=== PATIENT | female | born 1985 | race Two or more races ===

== ENCOUNTER 2016-11-08 16:36 | Emergency (ER) | payer SELFPAY ==
[~2016-11-08] VITALS: Ht 172.7 cm; Wt 79.4 kg
[2016-11-08 17:27] VITALS: BP 118/69
--- NOTE | 2016-11-08 17:31 | PHYS DOC ---
Past Medical History Past Medical History: Kidney Stone Past Surgical History: Alcohol Use: None Drug Use: None Adult General Chief Complaint Chief Complaint: VAGINAL PROBLEM HPI HPI Patient is a 31 year old female who presents with burning with urination and vaginal bleeding for two days. Interpretor phone used, #[phone]. Reports bleeding on ly occurs with wiping intermittently. Denies abnormal discharge, concern for STI, abdominal pain, n/v/d, fever. States some pressure occurs with urination. Review of Systems Review of Systems Constitutional: Denies fever or chills Eyes: Denies change in visual acuity, redness, or eye pain HENT: Denies nasal congestion or sore throat Respiratory: Denies cough or shortness of breath Cardiovascular: No additional information not addressed in HPI GI: Denies abdominal pain, nausea, vomiting, bloody stools or diarrhea : Burning with urination, blood on toilet paper for two days Musculoskeletal: Denies back pain or joint pain Integument: Denies rash or skin lesions Neurologic: Denies headache, focal weakness or sensory changes Endocrine: Denies polyuria or polydipsia [] Allergies Allergies Allergies Coded Allergies Type Severity Reaction Last Updated Verified No Known Drug Allergies 11/08/16 No Physical Exam Physical Exam Constitutional: Well developed, well nourished, no acute distress, non-toxic appearance. HENT: Normocephalic, atraumatic, bilateral external ears normal, oropharynx moist, no oral exudates, nose normal. Eyes: PERRLA, EOMI, conjunctiva normal, no discharge. Neck: Normal range of motion, no tenderness, supple, no stridor. Cardiovascular:Heart rate regular rhythm, no murmur Lungs & Thorax: Bilateral breath sounds clear to auscultation Abdomen: Bowel sounds normal, soft, no tenderness, no masses, no pulsatile masses. Vaginal: No external or internal lesions. Small amount of thick white discharge noted to vaginal matias. OS closed without erythema, no CMT Skin: Warm, dry, no erythema, no rash. [] Back: No tenderness, no CVA tenderness. [] Extremities: No tenderness, no cyanosis, no clubbing, ROM intact, no edema. [] Neurologic: Alert and oriented X 3, normal motor function, normal sensory function, no focal deficits noted. [] Psychologic: Affect normal, judgement normal, mood normal. [] Current Patient Data Vital Signs Vital Signs Date Time Temp Pulse Resp B/P Pulse Ox O2 Delivery O2 Flow Rate FiO2 11/08/16 17:27 98.3 96 20 100 Room Air 98.3 Lab Values Laboratory Tests Test 11/08/16 17:20 Urine Collection Type Unknown Urine Color Yellow Urine Clarity Cloudy Urine pH 6.0 Urine Specific [place] 1.020 Urine Protein 30mg/dL (NEG-TRACE) Urine Glucose (UA) Negativemg/dL (NEG) Urine Ketones (Stick) Negativemg/dL (NEG) Urine Blood Large (NEG) Urine Nitrite Negative (NEG) Urine Bilirubin Negative (NEG) Urine Urobilinogen Dipstick 0.2mg/dL (0.2 mg/dL) Urine Leukocyte Esterase Large (NEG) Urine RBC 20-40/HPF (0-2) Urine WBC 20-40/HPF (0-4) Urine Squamous Epithelial Cells Few/LPF Urine Bacteria 0/HPF (0-FEW) Urine Mucus Slight/LPF Urine Test Negative (NEG) Microbiology 11/08/16 Wet Prep - Final, Complete Microbiology 11/08/16 Wet Prep - Final, Complete EKG EKG [] Radiology/Procedures Radiology/Procedures [] Impressions: 1. urinary tract infection 2. yeast infection Course & Med Decision Making Course & Med Decision Making Pertinent Labs and Imaging studies reviewed. (See chart for details) [] Dragon Disclaimer Dragon Disclaimer This electronic medical record was generated, in whole or in part, using a voice recognition dictation system. Departure Departure Impression: Primary Impression: Urinary tract infection Additional Impression: Yeast infection Disposition: 01 HOME, SELF-CARE Condition: STABLE Patient Instructions: Candidal Vulvovaginitis, [id number], Urinary Tract Infection, [id number] Additional Instructions: 1. Take medication as prescribed. 2. Follow up with primary doctor in 1-2 days 3. Return if problems or concerns Scripts Fluconazole (Diflucan)150 Mg Tablet1 Tab PO ONCE #1 TAB Ref 1 Prov:ADELINE EPPERSON APRN 11/08/16 Sulfamethoxazole/Trimethoprim (Bactrim Ds Tablet)1 Each Tablet1 Each PO BID #6 TAB Prov:ADELINE EPPERSON APRN 11/08/16 Problem Qualifiers ADELINE EPPERSON APRN Nov 08, 2016 17:31
[2016-11-08 17:44] LABS: BILIRUBIN,URINE NEGATIVE (NEG); GLUCOSE,URINE NEGATIVE (NEG); NEG OBC UR NEG; NITRITE,URINE NEGATIVE (NEG); POS OBC UR POS; UROBILINOGEN,URINE 0.2 mg/dL (0.2 mg/dL)
[2016-11-08 17:51] LABS: BACTERIA,URINE 0 /HPF (0-FEW); PROTEIN,URINE 30 mg/dL (NEG-TRACE); RBC,URINE 20-40 /HPF (0-2); SQUAMOUS EPITHELIAL CELL,UR FEW /LPF; WBC,URINE 20-40 /HPF (0-4)
[2016-11-08] MEDS ORDERED: FLUC150T PO (19:03)
[2016-11-08] MEDS ORDERED: SULF1TAB24 PO (19:03)
== END 2016-11-08 19:18 | disposition home or self-care (01) ==
LOC: ER 16:36
DX: B37.49 Other urogenital candidiasis (principal); Z98.890 Other specified postprocedural states; Z87.442 Personal history of urinary calculi
CPT/HCPCS: 81001; 81025; 87086; 87491; 87591; 99284; Q0111

== ENCOUNTER 2019-06-30 08:17 | Emergency (ER) | payer SELFPAY ==
[~2019-06-30] VITALS: Ht 167.6 cm; Wt 79.4 kg
[~2019-06-30 08:17] MED LIST: FLUC150T PO; SULF1TAB24 PO
--- NOTE | 2019-06-30 08:49 | PHYS DOC ---
Past Medical History Past Medical History: Kidney Stone Past Surgical History: Alcohol Use: None Drug Use: None Adult General Chief Complaint Chief Complaint: ABDOMINAL PAIN HPI HPI Patient is a 33 year old female presents with abdominal pain that started last night. The patient also states she's been nauseous, and had a little bit diarrhea that started an hour ago. She states that her pain is 9 out of 10 in severity and sharp and located in the periumbilical area. The patient states she tried to take 200 mg of Advil around 1 AM that did not improve her pain. Denies any medical history the exception of kidney stones. Hair Colorist # [id number] Review of Systems Review of Systems Constitutional: Denies fever or chills [] Eyes: Denies change in visual acuity, redness, or eye pain [] HENT: Denies nasal congestion or sore throat [] Respiratory: Denies cough or shortness of breath [] Cardiovascular: No additional information not addressed in HPI [] GI: Reports abdominal pain, nausea, diarrhea Denies vomiting, bloody stools. : Denies dysuria or hematuria [] Musculoskeletal: Denies back pain or joint pain [] Integument: Denies rash or skin lesions [] Neurologic: Denies headache, focal weakness or sensory changes [] Endocrine: Denies polyuria or polydipsia [] Complete systems were reviewed and found to be within normal limits, except as documented in this note. Current Medications Current Medications Current Medications Medications (Trade) Dose Ordered Sig/Betsy Start Time Stop Time Status Last Admin Dose Admin Info (CONTRAST GIVEN -- Rx MONITORING) 1 each PRN DAILY PRN 06/30/19 09:30 07/02/19 09:29 Iohexol (Omnipaque 300 Mg/ml) 75 ml 1X ONCE 06/30/19 09:30 06/30/19 09:31 DC 06/30/19 09:40 75 ML Morphine Sulfate (Morphine Sulfate) 2 mg 1X ONCE 06/30/19 09:00 06/30/19 09:01 DC 06/30/19 10:00 2 MG Ondansetron HCl (Zofran) 4 mg 1X ONCE 06/30/19 09:00 06/30/19 09:01 DC 06/30/19 10:00 4 MG Sodium Chloride 1,000 ml @ 1,000 mls/hr 1X ONCE 06/30/19 09:00 06/30/19 09:59 DC 06/30/19 10:00 1,000 MLS/HR Allergies Allergies Allergies Coded Allergies Type Severity Reaction Last Updated Verified No Known Drug Allergies 11/08/16 No Physical Exam Physical Exam Constitutional: Well developed, well nourished, no acute distress, non-toxic appearance. HENT: Normocephalic, atraumatic, bilateral external ears normal, oropharynx moist, no oral exudates, nose normal. [] Eyes: PERRLA, EOMI, conjunctiva normal, no discharge. [] Neck: Normal range of motion, no tenderness, supple, no stridor. [] Cardiovascular:Heart rate regular rhythm, no murmur [] Lungs & Thorax: Bilateral breath sounds clear to auscultation [] Abdomen: Bowel sounds normal, soft, periumbilical abdominal tenderness, no masses, no pulsatile masses. [] Skin: Warm, dry, no erythema, no rash. [] Back: No tenderness, no CVA tenderness. [] Extremities: No tenderness, no cyanosis, no clubbing, ROM intact, no edema. [] Neurologic: Alert and oriented X 3, normal motor function, normal sensory function, no focal deficits noted. [] Psychologic: Affect normal, judgement normal, mood normal. [] Current Patient Data Vital Signs Vital Signs Date Time Temp Pulse Resp B/P (MAP) Pulse Ox O2 Delivery O2 Flow Rate FiO2 06/30/19 10:02 95 18 110/67 (81) 98 Room Air 06/30/19 08:42 98.3 98.3 Lab Values Laboratory Tests Test 06/30/19 08:40 06/30/19 08:48 06/30/19 09:00 Urine Collection Type Unknown Urine Color Yellow Urine Clarity Clear Urine pH 5.0 Urine Specific [place] 1.010 Urine Protein Negative mg/dL (NEG-TRACE) Urine Glucose (UA) Negative mg/dL (NEG) Urine Ketones (Stick) Negative mg/dL (NEG) Urine Blood Negative (NEG) Urine Nitrite Negative (NEG) Urine Bilirubin Negative (NEG) Urine Urobilinogen Dipstick 0.2 mg/dL (0.2 mg/dL) Urine Leukocyte Esterase Trace (NEG) Urine RBC 0 /HPF (0-2) Urine WBC 1-4 /HPF (0-4) Urine Squamous Epithelial Cells Few /LPF Urine Bacteria Moderate /HPF (0-FEW) Urine Mucus Mod /LPF POC Urine HCG, Qualitative Hcg negative (Negative) White Blood Count 14.4 x10^3/uL (4.0-11.0) H Red Blood Count 4.24 x10^6/uL (3.50-5.40) Hemoglobin 12.4 g/dL (12.0-15.5) Hematocrit 36.5 % (36.0-47.0) Mean Corpuscular Volume 86 fL (79-100) Mean Corpuscular Hemoglobin 29 pg (25-35) Mean Corpuscular Hemoglobin Concent 34 g/dL (31-37) Red Cell Distribution Width 13.8 % (11.5-14.5) Platelet Count 153 x10^3/uL (140-400) Neutrophils (%) (Auto) 93 % (31-73) H Lymphocytes (%) (Auto) 4 % (24-48) L Monocytes (%) (Auto) 3 % (0-9) Eosinophils (%) (Auto) 0 % (0-3) Basophils (%) (Auto) 0 % (0-3) Neutrophils # (Auto) 13.4 x10^3/uL (1.8-7.7) H Lymphocytes # (Auto) 0.6 x10^3/uL (1.0-4.8) L Monocytes # (Auto) 0.4 x10^3/uL (0.0-1.1) Eosinophils # (Auto) 0.0 x10^3/uL (0.0-0.7) Basophils # (Auto) 0.0 x10^3/uL (0.0-0.2) Segmented Neutrophils % 80 % (35-66) H Band Neutrophils % 12 % (0-9) H Lymphocytes % 3 % (24-48) L Monocytes % 3 % (0-10) Eosinophils % 1 % (0-5) Basophils % 1 % (0-3) Platelet Estimate Adequate (ADEQUATE) Sodium Level 137 mmol/L (136-145) Potassium Level 3.8 mmol/L (3.5-5.1) Chloride Level 103 mmol/L (98-107) Carbon Dioxide Level 25 mmol/L (21-32) Anion Gap 9 (6-14) Blood Urea Nitrogen 10 mg/dL (7-20) Creatinine 0.6 mg/dL (0.6-1.0) Estimated GFR (Cockcroft-Gault) 114.4 BUN/Creatinine Ratio 17 (6-20) Glucose Level 114 mg/dL (70-99) H Calcium Level 8.7 mg/dL (8.5-10.1) Total Bilirubin 0.5 mg/dL (0.2-1.0) Aspartate Amino Transferase (AST) 35 U/L (15-37) Alanine Aminotransferase (ALT) 39 U/L (14-59) Alkaline Phosphatase 64 U/L (46-116) Total Protein 7.5 g/dL (6.4-8.2) Albumin 3.8 g/dL (3.4-5.0) Albumin/Globulin Ratio 1.0 (1.0-1.7) Lipase 92 U/L (73-393) Laboratory Tests 06/30/19 09:00 Laboratory Tests 06/30/19 09:00 EKG EKG [] Radiology/Procedures Radiology/Procedures [][address] [place], [place] [id number] IMAGING REPORT Signed PATIENT: MINNIE BEANCOUNT: [id number] : 1985 LOCATION: ER AGE: 33 SEX: F EXAM STATUS: REG ER ORD. PHYSICIAN: PAPA ROCA APRN REASON: abd pain PROCEDURE: CT ABD PELV W/ IV CONTRST ONLY CT ABD PELV W/ IV CONTRST ONLY Indication: Abdominal pain, nausea, vomiting, diarrhea. Exposure: One or more of the following individualized dose reduction techniques were utilized for this examination: 1. Automated exposure control 2. Adjustment of the mA and/or kV according to patient size 3. Use of iterative reconstruction technique. Technique: Intravenous contrast was given. No oral contrast per request. Comparison: None FINDINGS: Mild linear opacities in lung bases compatible with atelectasis. Liver is enlarged, 22.5 cm cephalocaudal. No evidence of liver lesion. Spleen is borderline enlarged, 12.2 cm. Pancreas unremarkable. No evidence of adrenal mass. Kidneys demonstrate symmetric enhancement without hydronephrosis or focal mass. There may be a tiny several millimeter cyst in the lower pole left kidney. No calcified gallstone. Aorta is nonaneurysmal. Small lymph nodes are seen in the aortocaval region, measuring up to 6 mm in short axis, may be reactive. No evidence of pathologic lymph node enlargement is seen in the abdomen or pelvis. No evidence of significant small bowel distention. No evidence of acute colitis. A structure which is thought to represent a normal appendix is identified. No significant ascites or pneumoperitoneum. No evidence of pelvic mass. There may be small ovarian cysts bilaterally. Vertebral body height and alignment are intact. No aggressive bone destruction. Bilateral breast density is grossly symmetric. IMPRESSION: 1. Hepatomegaly. Borderline splenomegaly. 2. Possible small ovarian cysts. Electronically signed by: Papa Laguna MD (06/30/2019 10:07 AM) [id number] DICTATED and SIGNED BY: PAPA LAGUNA MD DATE: 06/30/19 1007 Course & Med Decision Making Course & Med Decision Making Pertinent Labs and Imaging studies reviewed. (See chart for details) Will get labs, Ct, and give supportive care. Labs show elevated WBC at 14, and trace leukocytes. CT shows enlarged spleen and liver. Will have follow up with PCP and instructed no physical activities. Will treat UTI. Dragon Disclaimer Dragon Disclaimer This electronic medical record was generated, in whole or in part, using a voice recognition dictation system. Departure Departure Impression: Primary Impression: Urinary tract infection Disposition: 01 HOME, SELF-CARE Condition: STABLE Referrals: NO PCP (PCP) Patient Instructions: Urinary Tract Infection Additional Instructions: Thank you for visiting [facility]. We appreciate you trusting us with your care. If any additional problems come up don't hesitate to return to visit us. Please follow up with your primary care provider so they can plan additional care if needed and know about the problem that you had. If symptoms worsen come back to the Emergency Department. Any concerning symptoms that start such as chest pain, shortness of air, weakness or numbness on one side of the body, running high fevers or any other concerning symptoms return to the ER. Please follow up with PCP about enlarged spleen and liver. No physical activity that could endanger spleen. Scripts Ondansetron (ONDANSETRON ODT) 4 Mg Tab.rapdis 1 TAB PO PRN Q6-8HRS, #16 TAB Prov: PAPA ROCA [employer] NEWS 8/30/19 Cephalexin (KEFLEX) 500 Mg Capsule 1 CAP PO BID for 7 Days, #14 CAP Prov: PAPA ROCA APRN 06/30/19 Problem Qualifiers Primary Impression: Urinary tract infection Urinary tract infection type: acute cystitis Hematuria presence: without hematuria Qualified Codes: N30.00 - Acute cystitis without hematuria PAPA ROCA APRN Jun 30, 2019 08:49
[2019-06-30] MEDS ORDERED: MORPHINE SULFATE 2 MG/ML VIAL. IV ONE (09:00)
[2019-06-30] MEDS ORDERED: IV NORMAL SALINE 1000ML BAG 1,000 ML IV ONE (09:00)
[2019-06-30] MEDS ORDERED: ONDANSETRON PF 4 MG/2 ML VIAL. IV ONE (09:00)
[2019-06-30 09:01] LABS: BILIRUBIN,URINE NEGATIVE (NEG); CLARITY,URINE CLEAR; COLOR,URINE YELLOW; NITRITE,URINE NEGATIVE (NEG); PROTEIN,URINE NEGATIVE (NEG-TRACE); UROBILINOGEN,URINE 0.2 mg/dL (0.2 mg/dL)
[2019-06-30 09:15] LABS: BASO % 0 % (0-3); EOS % 0 % (0-3); HEMATOCRIT 36.5 % (36.0-47.0); HEMOGLOBIN 12.4 g/dL (12.0-15.5); LYMPH # 0.6 x10^3/uL (1.0-4.8); LYMPH % 4 % (24-48); MEAN CORPUSCULAR HEMOGLOBIN 29 pg (25-35); MEAN CORPUSCULAR HGB CONC 34 g/dL (31-37); MEAN CORPUSCULAR VOLUME 86 fL (79-100); MONO # 0.4 x10^3/uL (0.0-1.1); MONO % 3 % (0-9); NEUT # 13.4 x10^3/uL (1.8-7.7); NEUT % 93 % (31-73); PLATELET COUNT 153 x10^3/uL (140-400); RED BLOOD COUNT 4.24 x10^6/uL (3.50-5.40); RED CELL DISTRIBUTION WIDTH 13.8 % (11.5-14.5); WHITE BLOOD COUNT 14.4 x10^3/uL (4.0-11.0)
[2019-06-30 09:16] LABS: BACTERIA,URINE MODERATE /HPF (0-FEW); RBC,URINE 0 /HPF (0-2); SQUAMOUS EPITHELIAL CELL,UR FEW /LPF
[2019-06-30 09:20] LABS: CALCIUM 8.7 mg/dL (8.5-10.1); CREATININE 0.6 mg/dL (0.6-1.0); GFR 114.4; POTASSIUM 3.8 mmol/L (3.5-5.1)
[2019-06-30 09:25] LABS: ALBUMIN 3.8 g/dL (3.4-5.0); TOTAL BILIRUBIN 0.5 mg/dL (0.2-1.0); TOTAL PROTEIN 7.5 g/dL (6.4-8.2)
[2019-06-30] MEDS ORDERED: CONTRAST GIVEN. MC PRN (09:30)
[2019-06-30] MEDS ORDERED: IOHEXOL 300 MG/ML 100ML VIAL. IV ONE (09:30)
[2019-06-30 10:01] LABS: % BANDS 12 % (0-9); % BASOS 1 % (0-3); % LYMPHS 3 % (24-48); % MONOS 3 % (0-10); % SEGS 80 % (35-66)
[2019-06-30 10:02] LABS: % EOS 1 % (0-5); PLT ESTIMATE ADEQUATE (ADEQUATE)
--- NOTE | 2019-06-30 10:10 | RAD ---
CT ABD PELV W/ IV CONTRST ONLY Indication: Abdominal pain, nausea, vomiting, diarrhea. Exposure: One or more of the following individualized dose reduction techniques were utilized for this examination: 1. Automated exposure control 2. Adjustment of the mA and/or kV according to patient size 3. Use of iterative reconstruction technique. Technique: Intravenous contrast was given. No oral contrast per request. Comparison: None FINDINGS: Mild linear opacities in lung bases compatible with atelectasis. Liver is enlarged, 22.5 cm cephalocaudal. No evidence of liver lesion. Spleen is borderline enlarged, 12.2 cm. Pancreas unremarkable. No evidence of adrenal mass. Kidneys demonstrate symmetric enhancement without hydronephrosis or focal mass. There may be a tiny several millimeter cyst in the lower pole left kidney. No calcified gallstone. Aorta is nonaneurysmal. Small lymph nodes are seen in the aortocaval region, measuring up to 6 mm in short axis, may be reactive. No evidence of pathologic lymph node enlargement is seen in the abdomen or pelvis. No evidence of significant small bowel distention. No evidence of acute colitis. A structure which is thought to represent a normal appendix is identified. No significant ascites or pneumoperitoneum. No evidence of pelvic mass. There may be small ovarian cysts bilaterally. Vertebral body height and alignment are intact. No aggressive bone destruction. Bilateral breast density is grossly symmetric. IMPRESSION: 1. Hepatomegaly. Borderline splenomegaly. 2. Possible small ovarian cysts. Electronically signed by: Papa Laguna MD (06/30/2019 10:07 AM) [id number]
[2019-06-30] MEDS ORDERED: CEPH-264 PO (10:19)
[2019-06-30] MEDS ORDERED: ONDA4TAB12 PO (10:27)
[2019-06-30 10:58] VITALS: BP 110/49
== END 2019-06-30 10:59 | disposition home or self-care (01) ==
LOC: ER 08:17
DX: N30.00 Acute cystitis without hematuria (principal); R11.0 Nausea; R19.7 Diarrhea, unspecified; Z87.442 Personal history of urinary calculi; Z98.890 Other specified postprocedural states
CPT/HCPCS: 36415; 74177; 80053; 81001; 81025; 83690; 85007; 85025; 87086; 96361; 96374; 96375; 99285; J2270; J2405; J7030; Q9967